=== PATIENT | male | born 1945 | race Caucasian/White ===

== ENCOUNTER 2020-06-28 17:14 | Inpatient (IN) | payer MEDICARE, SELFPAY ==
[2020-06-28] VITALS (22 sets, daily range): BP systolic 87–115; BP diastolic 46–60; PULSE 92–111; RESP 15–31; TEMP 37.1–37.6; O2SAT 94–98; BMI 32.8
[2020-06-28] MEDS: SODIUM CHLORIDE 0.9% 1,000 ML 1000 ML IV ×2 (17:55→20:55)
--- NOTE | 2020-06-28 18:12 | ED_ITS ---
HPI - Nausea/Vomiting/Diarrhea General Chief complaint: Nausea/Vomiting/Diarrhea Stated complaint: possible reaction to needle biopsy Time Seen by Provider: 06/28/20 18:02 Source: patient Mode of arrival: Family Vehicle Limitations: no limitations History of Present Illness HPI Narrative: Patient is a 75-year-old male who earlier this week underwent a transrectal needle biopsy of his prostate for evaluation of a rising PSA and also prosthetic hypertrophy. He does not have the results of this biopsy back as of this point. He had the procedure done at [facility]. He stated that after the procedure he did have some difficulty urinating but that seems to have resolved. He does have some burning with urination. Has had diarrhea since the procedure. Has no rectal pain but states that he does have some discomfort when he sits. No blood in the stool. No blood in his urine. Yesterday had a episode where he became very chilled and had body aches and shaking. He took some Tylenol which helped his symptoms tremendously. He stated after take the Tylenol he felt better. Today the same episode happened again but he did report that it was not as bad today as it was yesterday. He contacted the operative providers office to told him to come to the emergency department as they were concerned about a potential infection. Related Data Home Medications Medication Instructions Recorded Confirmed atorvastatin 10 mg tablet 10 mg PO DAILY 09/16/18 06/28/20 losartan 50 mg tablet 50 mg PO BID tab 09/16/18 06/28/20 Allergies Allergy/AdvReac Type Severity Reaction Status Date / Time tamsulosin [From Flomax] Allergy Unknown Verified 06/28/20 17:37 Review of Systems Constitutional Constitutional: Reports chills and Reports fever(s) Eyes Eyes: Denies change in vision ENT Ears, Nose, Mouth, and Throat: Denies sore throat Cardiovascular Cardiovascular: Denies chest pain and Denies dyspnea Respiratory Respiratory: Denies cough and Denies dyspnea Gastrointestinal Gastrointestinal: Denies abdominal pain, Denies nausea and Denies vomiting Genitourinary Genitourinary: Denies hematuria, Denies dysuria, Denies urinary hesitancy and Denies urinary urgency Genitourinary: Denies hematuria, Denies dysuria, Denies urinary hesitancy and Denies urinary urgency Musculoskeletal Musculoskeletal: Denies arthralgias, Denies back pain and Denies myalgias Integumentary/Breasts Skin/Breast: Denies lesions and Denies rash Neurologic Neurologic: Denies behavioral changes Psychiatric Psychiatric: Denies behavioral changes Hematologic/Lymphatic Hematologic/Lymphatic: Denies easy bleeding and Denies easy bruising Allergic/Immunologic Allergic/Immunologic: Denies urticaria Patient History Medical History Asthma BPH (benign prostatic hyperplasia) Chronic seasonal allergic rhinitis GERD (gastroesophageal reflux disease) Hypertension Lung nodule < 6cm on CT Obstructive sleep apnea of adult Family History Other CAD (coronary artery disease) Cancer Social History household members: significant other Smoking Status: Never smoker alcohol intake: former Smoking Status: Never smoker alcohol intake frequency: 0-2 drinks per day Substance Use Type: does not use Exam Initial Vital Signs Initial Vital Signs: Vital Signs Pulse Rate 111 H 06/28/20 17:24 Pulse Oximetry 95 06/28/20 17:24 Const General: cooperative and comfortable Limitations: mental status not altered HENMT Head: normal to inspection and normocephalic Resp Effort & Inspection: not labored and tachypneic Auscultation: clear to auscultation bilaterally Cardio Rate: tachycardic Rhythm: regular rhythm GI Inspection: non-distended Palpation: soft, No firm and No tender Skin Lesions: no lesions Rashes: no rashes Neuro General: patient alert and patient awake Cognition: normal cognition Speech: speech normal Extrem General: capillary refill normal Psych Appearance: grossly normal and well kempt Scores GCS Gavin coma scale eye opening: Spontaneous Gavin coma scale verbal response: Orientated Gavin coma scale motor response: Obey commands Gavin coma scale total score: 15 Course Orders Ordered: ED Orders 06/28/20 17:53 Complete Blood Count AUTO DIFF Stat Comprehensive Metabolic Panel Stat Lactate (Lactic Acid) Stat Lipase Stat Procalcitonin Stat 06/28/20 18:15 CT abdomen pelvis w con Stat 06/28/20 18:36 Blood Culture Stat 06/28/20 19:27 Urinalysis and Microscopic Stat Urine Culture Stat 06/28/20 20:38 COVID19 Stat Acetaminophen (Acetaminophen 325 Mg Tablet) 650 mg PO Q4HR PRN PRN Reason: Fever/Mild Pain (1-3) Al Hydrox/Mg Hydrox/Simethicone (Mag Hydrox/Alum/Simeth 30 Ml Udc) 30 ml PO Q6HR PRN PRN Reason: Dyspepsia Calcium Carbonate (Calcium Carbonate 500 Mg Tab) 1,000 mg PO Q4HR PRN PRN Reason: Dyspepsia Enoxaparin Sodium (Enoxaparin 40 Mg/0.4 Ml Syringe) 40 mg SUBCUT DAILY HUBER Sodium Chloride (Normal Saline 0.9%) 1,000 mls @ 150 mls/hr IV CONT HUBER Piperacillin/Tazobactam/Dextrose (Zosyn) 3.375 gm in 50 mls @ 100 mls/hr IV Q8H HUBER Vancomycin HCl (Vancomycin) 1,000 mg in 200 mls @ 200 mls/hr IV Q12H HUBER Naloxone HCl (Naloxone 0.4 Mg/Ml Vial) 0.2 mg IV Q2MIN PRN PRN Reason: Opiate Reversal Ondansetron HCl (Ondansetron 4 Mg/2 Ml Inj) 4 mg IV Q8HR PRN PRN Reason: Nausea And Vomiting Oxycodone HCl (Oxycodone Ir 5 Mg Tablet) 5 mg PO Q6HR PRN PRN Reason: Pain, Moderate (4-6) Vancomycin HCl (Vancomycin Per Pharmacy) 1 request MISC NOW ONE Stop: 06/28/20 22:15 Discontinued Medications Sodium Chloride (Normal Saline 0.9%) 1,000 mls @ 1,000 mls/hr IV BOLUS ONE Stop: 06/28/20 19:12 Last Infusion: 06/28/20 19:25 Dose: 0 mls/hr Documented by: Admin: 06/28/20 17:55 Dose: 1,000 mls/hr Documented by: RANDY Ceftriaxone Sodium/Dextrose (Rocephin) 1 gm in 50 mls @ 100 mls/hr IV NOW ONE Stop: 06/28/20 19:29 Last Infusion: 06/28/20 20:53 Dose: 0 mls/hr Documented by: Admin: 06/28/20 19:35 Dose: 100 mls/hr Documented by: LONDON Sodium Chloride (Normal Saline 0.9%) 1,000 mls @ 1,000 mls/hr IV BOLUS ONE Stop: 06/28/20 21:38 Last Infusion: 06/28/20 21:36 Dose: 1,000 mls/hr Documented by: Admin: 06/28/20 20:55 Dose: 1,000 mls/hr Documented by: LONDON Piperacillin/Tazobactam/Dextrose (Zosyn) 3.375 gm in 50 mls @ 100 mls/hr IV NOW ONE Stop: 06/28/20 21:09 Last Infusion: 06/28/20 21:25 Dose: 0 mls/hr Documented by: Admin: 06/28/20 20:54 Dose: 100 mls/hr Documented by: LONDON Vancomycin HCl (Vancomycin) 1,000 mg in 200 mls @ 200 mls/hr IV NOW ONE Stop: 06/28/20 21:38 Last Admin: 06/28/20 21:53 Dose: 200 mls/hr Documented by: SUGEY Vital Signs Vital signs: Vital Signs - 8 hr 06/28/20 17:24 06/28/20 17:25 06/28/20 17:29 Temperature 99.6 F Pulse Rate 111 H 108 H 110 H Respiratory Rate 20 Blood Pressure 97/49 L Pulse Oximetry 95 96 98 06/28/20 17:30 06/28/20 17:35 06/28/20 17:40 Temperature Pulse Rate 106 H 106 H 101 H Respiratory Rate 20 20 15 Blood Pressure 97/49 L Pulse Oximetry 96 95 94 06/28/20 17:45 06/28/20 17:47 06/28/20 17:50 Temperature Pulse Rate 103 H 104 H 105 H Respiratory Rate 19 26 H 18 Blood Pressure 87/52 L Pulse Oximetry 96 95 96 06/28/20 17:55 06/28/20 17:58 06/28/20 18:00 Temperature Pulse Rate 103 H 105 H 104 H Respiratory Rate 28 H 22 20 Blood Pressure 97/56 L 95/50 L Pulse Oximetry 96 96 96 06/28/20 18:05 06/28/20 18:30 06/28/20 19:00 Temperature Pulse Rate 103 H 100 H 105 H Respiratory Rate 23 25 H 28 H Blood Pressure 102/52 L 90/51 L Pulse Oximetry 96 96 96 06/28/20 19:26 06/28/20 19:30 06/28/20 20:00 Temperature Pulse Rate 101 H 105 H 104 H Respiratory Rate 29 H 20 27 H Blood Pressure 92/53 L 88/46 L 90/51 L Pulse Oximetry 97 95 96 06/28/20 20:30 Temperature Pulse Rate 106 H Respiratory Rate 23 Blood Pressure 104/59 L Pulse Oximetry 96 MDM - Nausea/Vomiting/Diarrhea Lab Data Attestation: I reviewed the patient's lab results. Result diagrams: 06/28/20 17:53 06/28/20 17:53 Labs: Lab Results 06/28/20 06/28/20 06/28/20 Range/Units 17:53 17:53 17:53 WBC 17.3 H (4.5-11.0) X10^3/uL RBC 3.58 L (4.5-5.9) X10^6/uL Hgb 12.0 L (13.5-17.5) g/dL Hct 34.7 L (41-53) % MCV 96.9 (80-100) fL MCH 33.6 (26-34) PG MCHC 34.7 (30-36) % RDW 12.5 (11.6-14.8) % Plt Count 143 L (150-400) X10^3/uL Neut % (Auto) 95.3 H (50-75) % Lymph % (Auto) 1.4 L (25-40) % Sac % (Auto) 2.9 L (3-14) % Eos % (Auto) 0.1 L (2-4) % Baso % (Auto) 0.3 (0-2) % Neut # (Auto) 23729 H (4748-3241) /uL Lymph # (Auto) 200 L (8119-4628) /uL Sac # (Auto) 500 (0-900) /uL Eos # (Auto) 0 (0-450) /uL Baso # (Auto) 0 (0-100) /uL Sodium 132 L (137-145) mmol/L Potassium 3.8 (3.4-5.1) mmol/L Chloride 101 (98-107) mmol/L Carbon Dioxide 23 (22-32) mmol/L BUN 31 H (9-20) mg/dL Creatinine 1.31 H (0.66-1.25) mg/dL Estimated GFR 53.3 L (>60) mL/min BUN/Creatinine Ratio 23.7 H (6-22) Glucose 128 H (80-110) mg/dL Lactate (0.7-2.1) mmol/L Calcium 8.8 (8.4-10.2) mg/dL Total Bilirubin 1.1 (0.2-1.3) mg/dL AST 47 (17-59) IU/L ALT 38 (<50) IU/L Alkaline Phosphatase 93 (38-126) U/L Total Protein 6.6 (6.3-8.2) g/dL Albumin 3.7 (3.5-5.0) g/dL Globulin 2.9 (1.7-4.1) g/dL Albumin/Globulin Ratio 1.3 (1.0-2.8) Lipase 61 (23-300) U/L Procalcitonin 22.43 H (<0.5) ng/mL Urine Color Urine Appearance Urine pH (4.5-8.0) Ur Specific [place] (1.000-1.035) Urine Protein (Negative) Urine Glucose (UA) (Negative) g/dL Urine Ketones (NEGATIVE) Urine Occult Blood (Negative) Urine Nitrate (Negative) Urine Bilirubin (NEGATIVE) Urine Urobilinogen (0.2) E.U./dL Ur Leukocyte Esterase (NEGATIVE) Urine RBC (0-5/HPF) Urine WBC (0-5/HPF) Ur Squamous Epith Cells (0-5/HPF) Urine Bacteria (None) Hyaline Casts (None) Ur Culture Indicated? Micro UA Comment COVID-19 PCR (Negative) 06/28/20 06/28/20 06/28/20 Range/Units 17:53 19:27 20:36 WBC (4.5-11.0) X10^3/uL RBC (4.5-5.9) X10^6/uL Hgb (13.5-17.5) g/dL Hct (41-53) % MCV (80-100) fL MCH (26-34) PG MCHC (30-36) % RDW (11.6-14.8) % Plt Count (150-400) X10^3/uL Neut % (Auto) (50-75) % Lymph % (Auto) (25-40) % Sac % (Auto) (3-14) % Eos % (Auto) (2-4) % Baso % (Auto) (0-2) % Neut # (Auto) (9282-8285) /uL Lymph # (Auto) (6745-8502) /uL Sac # (Auto) (0-900) /uL Eos # (Auto) (0-450) /uL Baso # (Auto) (0-100) /uL Sodium (137-145) mmol/L Potassium (3.4-5.1) mmol/L Chloride (98-107) mmol/L Carbon Dioxide (22-32) mmol/L BUN (9-20) mg/dL Creatinine (0.66-1.25) mg/dL Estimated GFR (>60) mL/min BUN/Creatinine Ratio (6-22) Glucose (80-110) mg/dL Lactate 2.5 H 1.3 (0.7-2.1) mmol/L Calcium (8.4-10.2) mg/dL Total Bilirubin (0.2-1.3) mg/dL AST (17-59) IU/L ALT (<50) IU/L Alkaline Phosphatase (38-126) U/L Total Protein (6.3-8.2) g/dL Albumin (3.5-5.0) g/dL Globulin (1.7-4.1) g/dL Albumin/Globulin Ratio (1.0-2.8) Lipase (23-300) U/L Procalcitonin (<0.5) ng/mL Urine Color Yellow Urine Appearance Clear Urine pH 5.5 (4.5-8.0) Ur Specific [place] <=1.005 (1.000-1.035) Urine Protein Trace H (Negative) Urine Glucose (UA) Negative (Negative) g/dL Urine Ketones Negative (NEGATIVE) Urine Occult Blood 3+ H (Negative) Urine Nitrate Negative (Negative) Urine Bilirubin Negative (NEGATIVE) Urine Urobilinogen 0.2 (0.2) E.U./dL Ur Leukocyte Esterase 1+ H (NEGATIVE) Urine RBC 10-30/hpf H (0-5/HPF) Urine WBC 10-30/hpf H (0-5/HPF) Ur Squamous Epith Cells 1-5 /hpf (0-5/HPF) Urine Bacteria Few (2-10) H (None) Hyaline Casts 1-5/lpf (None) Ur Culture Indicated? Cult not indicated Micro UA Comment Cx already ordered COVID-19 PCR (Negative) 06/28/20 Range/Units 20:38 WBC (4.5-11.0) X10^3/uL RBC (4.5-5.9) X10^6/uL Hgb (13.5-17.5) g/dL Hct (41-53) % MCV (80-100) fL MCH (26-34) PG MCHC (30-36) % RDW (11.6-14.8) % Plt Count (150-400) X10^3/uL Neut % (Auto) (50-75) % Lymph % (Auto) (25-40) % Sac % (Auto) (3-14) % Eos % (Auto) (2-4) % Baso % (Auto) (0-2) % Neut # (Auto) (7810-8212) /uL Lymph # (Auto) (1328-7492) /uL Sac # (Auto) (0-900) /uL Eos # (Auto) (0-450) /uL Baso # (Auto) (0-100) /uL Sodium (137-145) mmol/L Potassium (3.4-5.1) mmol/L Chloride (98-107) mmol/L Carbon Dioxide (22-32) mmol/L BUN (9-20) mg/dL Creatinine (0.66-1.25) mg/dL Estimated GFR (>60) mL/min BUN/Creatinine Ratio (6-22) Glucose (80-110) mg/dL Lactate (0.7-2.1) mmol/L Calcium (8.4-10.2) mg/dL Total Bilirubin (0.2-1.3) mg/dL AST (17-59) IU/L ALT (<50) IU/L Alkaline Phosphatase (38-126) U/L Total Protein (6.3-8.2) g/dL Albumin (3.5-5.0) g/dL Globulin (1.7-4.1) g/dL Albumin/Globulin Ratio (1.0-2.8) Lipase (23-300) U/L Procalcitonin (<0.5) ng/mL Urine Color Urine Appearance Urine pH (4.5-8.0) Ur Specific [place] (1.000-1.035) Urine Protein (Negative) Urine Glucose (UA) (Negative) g/dL Urine Ketones (NEGATIVE) Urine Occult Blood (Negative) Urine Nitrate (Negative) Urine Bilirubin (NEGATIVE) Urine Urobilinogen (0.2) E.U./dL Ur Leukocyte Esterase (NEGATIVE) Urine RBC (0-5/HPF) Urine WBC (0-5/HPF) Ur Squamous Epith Cells (0-5/HPF) Urine Bacteria (None) Hyaline Casts (None) Ur Culture Indicated? Micro UA Comment COVID-19 PCR Negative (Negative) Urine Dip Bedside Urine Glucose Negative Bedside Urine Bilirubin - Negative Bedside Urine Ketone - Negative Urine Specific [place] 1.010 Bedside Urine Occult Blood ++ Bedside Urine pH 6.0 Bedside Urine Protein +/- 15 Bedside Urine Urobilinogen - Negative Bedside Urine Nitrite - Negative Bedside Urine Leukocytes +/- [address] scan - abdomen/pelvis: Radiologist's Impression: [address] [id number] Scan ReportSigned Patient: Jeanna SnyderMR#: [id number]: 5Acct:[id number]/Sex: 75 / MDate of Service: 06/28/20Loc: EDAccession Number: [id number] Procedure: CT abdomen pelvis w con Ordering Provider: Pablo Vasquez D.O. PROCEDURE: CT ABDOMEN PELVIS W CON INDICATIONS: prostate bx earlier this week with chills eval for abscess TECHNIQUE: After the administration of intravenous contrast, 5 mm thick sections acquired f rom the diaphragm to the symphysis. 5 mm coronal and sagittal reformats were acquired. For radiation dose reduction, the following was used: automated exposure control, adjustment of mA and/or kV according to patient size. COMPARISON: None. FINDINGS: Image quality: Excellent. ABDOMEN: Lung bases: Mild left lung base atelectasis. Heart size is normal. Coronary artery calcification. Solid organs: Liver is normal in size and enhancement. Lobulated posterior right hepatic lobe cyst. Gallbladder is partially decompressed . Biliary system is non dilated. Pancreas enhances normally. Spleen is normal in size and enhancement. No adrenal nodules. Kidneys demonstrate normal size and enhancement, without hydronephrosis. Peritoneum and bowel: Bowel loops demonstrate normal wall thickness and caliber. Diverticulosis of the sigmoid colon. No pericolonic inflammation. Normal appendix in the right lower quadrant. No free fluid or air. Nodes and vessels: No retroperitoneal or mesenteric adenopathy by size criteria. Aorta and inferior vena cava are normal in size. Moderate abdominal aortic atherosclerotic calcification. Miscellaneous: No ventral hernias. PELVIS: Genitourinary: The urinary bladder is partially filled and the wall is diffusely circumferentially thickened. There are moderate perivesicular inflammatory changes. The prostate gland is moderately enlarged with coarse central calcifications. There is mild fat stranding surrounding the prostate gland and in the perirectal fat as well as thickening of the presacral fascia. A discrete fluid collection is not identified. Miscellaneous: Small, right greater than left bilateral fat containing inguinal hernias. No significant pelvic adenopathy. Bones: No suspicious bony lesions. Multilevel lumbar spondylosis. No vertebral body compression fractures. IMPRESSION: 1. Generalized inflammation around the urinary bladder and prostate gland suggesting cystitis and/or prostatitis. 2. No drainable abscess. 3. Sigmoid diverticulosis. Dictated by: Janki Novoa M.D. on 06/28/2020 at 19:42 Approved by: Janki Novoa M.D. on 06/28/2020 at 19:49 [facility] Narrative Medical decision making narrative: Patient does have a leukocytosis, elevated procalcitonin, slightly elevated lactate was tachycardic. Patient was fluid resuscitated. Upon return of his initial labs started on antibiotics. Blood cultures were obtained. Urinalysis concerning for infection. CT scan returning for prostatitis/cystitis. He states that he feels much better after fluids. Not altered. I did discuss the case with on-call Urology at [facility] who recommended giving the patient Zosyn and vancomycin instead of Rocephin. He stated that they give all of their patient's Rocephin prior to the procedure. H e also recommended giving the patient Augmentin as an oral antibiotic after discharge. He states that he was on-call this weekend if things were to change in be happy to take the patient in transfer if they needed to but he did not feel that any emergent urologic procedures were needed. Had a discussion with the patient regarding his symptoms. Informed him that given his vital signs and labs that admission to the hospital for IV antibiotics would be warranted. Patient and his was at bedside expressed understanding agreement with this plan. Discussed the case with BHUMIKA Bill the [facility] provider who will accept the patient for further evaluation and treatment. Discharge Plan Departure Patient Disposition: Admitted As Inpatient Clinical Impression: Urinary tract infection Qualifiers: Urinary tract infection type: acute cystitis Hematuria presence: with hematuria Qualified Code(s): N30.01 - Acute cystitis with hematuria Admit Date/Time: 06/28/20 20:39 Admit Provider: Vimal Bill
--- NOTE | 2020-06-28 18:15 | DI.CT.S_ITS ---
PROCEDURE: CT ABDOMEN PELVIS W CON INDICATIONS: prostate bx earlier this week with chills eval for abscess TECHNIQUE: After the administration of intravenous contrast, 5 mm thick sections acquired from the diaphragm to the symphysis. 5 mm coronal and sagittal reformats were acquired. For radiation dose reduction, the following was used: automated exposure control, adjustment of mA and/or kV according to patient size. COMPARISON: None. FINDINGS: Image quality: Excellent. ABDOMEN: Lung bases: Mild left lung base atelectasis. Heart size is normal. Coronary artery calcification. Solid organs: Liver is normal in size and enhancement. Lobulated posterior right hepatic lobe cyst. Gallbladder is partially decompressed . Biliary system is non dilated. Pancreas enhances normally. Spleen is normal in size and enhancement. No adrenal nodules. Kidneys demonstrate normal size and enhancement, without hydronephrosis. Peritoneum and bowel: Bowel loops demonstrate normal wall thickness and caliber. Diverticulosis of the sigmoid colon. No pericolonic inflammation. Normal appendix in the right lower quadrant. No free fluid or air. Nodes and vessels: No retroperitoneal or mesenteric adenopathy by size criteria. Aorta and inferior vena cava are normal in size. Moderate abdominal aortic atherosclerotic calcification. Miscellaneous: No ventral hernias. PELVIS: Genitourinary: The urinary bladder is partially filled and the wall is diffusely circumferentially thickened. There are moderate perivesicular inflammatory changes. The prostate gland is moderately enlarged with coarse central calcifications. There is mild fat stranding surrounding the prostate gland and in the perirectal fat as well as thickening of the presacral fascia. A discrete fluid collection is not identified. Miscellaneous: Small, right greater than left bilateral fat containing inguinal hernias. No significant pelvic adenopathy. Bones: No suspicious bony lesions. Multilevel lumbar spondylosis. No vertebral body compression fractures. IMPRESSION: 1. Generalized inflammation around the urinary bladder and prostate gland suggesting cystitis and/or prostatitis. 2. No drainable abscess. 3. Sigmoid diverticulosis. Dictated by: Janki Novoa M.D. on 06/28/2020 at 19:42 Approved by: Janki Novoa M.D. on 06/28/2020 at 19:49
[2020-06-28 18:38] LABS: Lactate (Lactic Acid) 2.5 mmol/L (0.7-2.1)
[2020-06-28 18:39] LABS: Alanine Aminotransferase 38 IU/L (<50); Albumin 3.7 g/dL (3.5-5.0); Albumin Globulin Ratio 1.3 (1.0-2.8); Alkaline Phosphatase 93 U/L (38-126); Aspartate Aminotransferase 47 IU/L (17-59); BUN Creatinine Ratio 23.7 (6-22); Bilirubin Total 1.1 mg/dL (0.2-1.3); Blood Urea Nitrogen 31 mg/dL (9-20); Calcium 8.8 mg/dL (8.4-10.2); Carbon Dioxide 23 mmol/L (22-32); Chloride 101 mmol/L (98-107); Estimated Glomerular Filt Rate 53.3 mL/min (>60); Globulin 2.9 g/dL (1.7-4.1); Glucose 128 mg/dL (80-110); HEMOLYSIS < 15 (0-50); Lipase 61 U/L (23-300); Potassium 3.8 mmol/L (3.4-5.1); Sodium 132 mmol/L (137-145); Total Protein 6.6 g/dL (6.3-8.2)
[2020-06-28 18:40] LABS: Add Manual Diff / Slide Review NO; Basophils Absolute Auto 0 /uL (0-100); Basophils Percent Auto 0.3 % (0-2); Eosinophils Absolute Auto 0 /uL (0-450); Eosinophils Percent Auto 0.1 % (2-4); Hematocrit 34.7 % (41-53); Lymphocytes Absolute Auto 200 /uL (1100-4500); Lymphocytes Percent Auto 1.4 % (25-40); Mean Corpuscular HGB Conc 34.7 % (30-36); Mean Corpuscular Hemoglobin 33.6 PG (26-34); Mean Corpuscular Volume 96.9 fL (80-100); Monocytes Absolute Auto 500 /uL (0-900); Monocytes Percent Auto 2.9 % (3-14); Neutrophils Absolute Auto 16500 /uL (1500-7000); Neutrophils Percent Auto 95.3 % (50-75); Platelet Count 143 X10^3/uL (150-400); Red Blood Cell Count 3.58 X10^6/uL (4.5-5.9); Red Cell Distribution Width 12.5 % (11.6-14.8); White Blood Cell Count 17.3 X10^3/uL (4.5-11.0)
[2020-06-28 18:59] LABS: Procalcitonin 22.43 ng/mL (<0.5)
[2020-06-28 19:33] LABS: Appearance Urine UA CLEAR; Bilirubin Urine UA NEGATIVE (NEGATIVE); Color Urine UA YELLOW; Glucose Urine UA NEGATIVE (Negative); Ketones Urine UA NEGATIVE (NEGATIVE); Leukocyte Esterase Urine UA 1+ (NEGATIVE); Nitrite Urine UA NEGATIVE (Negative); Occult Blood Urine UA 3+ (Negative); Protein Urine UA TRACE (Negative); Specific Gravity Urine UA <=1.005 (1.000-1.035); Urobilinogen Urine UA 0.2 E.U./dL (0.2); pH Urine UA 5.5 (4.5-8.0)
[2020-06-28] MEDS: CEFTRIAXONE 1 GM/50 ML FROZ.PIGGY IV (19:35)
[2020-06-28 19:52] LABS: Bacteria Urine Few (2-10); Culture Indicated Urine Cult Not Indicated; Hyaline Casts Urine 1-5/LPF; RBC Urine 10-30/HPF (0-5/HPF); Squamous Epithelial Cell Urine 1-5 /HPF (0-5/HPF); WBC Urine 10-30/HPF (0-5/HPF)
[2020-06-28 19:53] LABS: Urine Comments CX ALREADY ORDERED
[2020-06-28 20:27] LABS: Reflexed Lactate in 2 Hours Y
[2020-06-28 20:52] LABS: Lactate 2HR (Lactic Acid Rflx) 1.3 mmol/L (0.7-2.1)
[2020-06-28] MEDS: PIPERACILLIN-TAZO 3.375 GM/50 ML FROZ.PIGGY IV (20:54)
[2020-06-28 20:57] LABS: COVID19 -Nasal RAPID Negative (Negative)
[2020-06-28 21:45] LABS: Magnesium 1.5 mg/dL (1.6-2.3)
[2020-06-28] MEDS: VANCOMYCIN 1,000 MG/200 ML PIGGYBACK 200 MG IV (21:53)
[2020-06-28] MEDS: SODIUM CHLORIDE 0.9% 1,000 ML 150 ML IV (22:21)
--- NOTE | 2020-06-28 22:47 | PM.HP.1 ---
History of Present Illness History of Present Illness Date Patient Seen: 06/28/20 Time Patient Seen: 22:20 Chief complaint: possible reaction to needle biopsy Narrative: Mr. Jeanna Clemons is a 75 year old male with a past medical history significant for hypertension, lung nodule, obstructive sleep with CPAP, GERD in chronic bilateral shoulder pain who presents to the ER with nausea vomiting and diarrhea. The patient underwent a transrectal prostate biopsy 3 days ago at [facility]. Following the procedure the patient describes having mild difficulty with urinating peroneal tenderness and developed chills and rigors yesterday improved with associated with nausea and vomiting. He also had moderate diarrhea that has since improved today. He had recurrent rigors not as severe today as well as lightheadedness and dizziness on standing prompting presentation to the ER for evaluation. The patient provides further information that he underwent but he describes as TURP 06/12/2020 and prior to that it had prostate laser surgery without improvement. Patient denies fevers only endorses chills and rigors. He has chronic nasal congestion but denies sinus pain or sore throat. He has had no chest pain or palpitations and denies shortness of breath cough or wheezing. Reports no abdominal pain and denies cramping with diarrhea which is improved from watery to soft. He continues to have frequent difficult urination and has a history of nocturia 2-5 times per night. He has bilateral shoulder pain related to rotator cuff disorder which he has been using CBD oil with good effect. Upon arrival the ER the patient's temperature 99.6?, heart rate 110, blood pressure 97/49, respiratory rate of 20 saturating 98% on room air. A CT of the abdomen pelvis is obtained which finds generalized inflammation around the urinary bladder and prostate with fat stranding around the prostate suspicious for cystitis or prostatitis, no abscess or free fluid, noted sigmoid diverticulosis. On laboratory analysis the patient has white count of 17.3 with 95.3 neutrophils, hemoglobin of 12.0, hematocrit of 34.7 and platelets of 143. His sodium 32, potassium of 3.8, BUN of 31 and creatinine 1.31. His nonfasting glucose is 128. His EGFR is 53.3. Total bilirubin is 1.1 with AST of 47, ALT of 38 and alkaline phosphatase of 93. Lactic acid is 2.5 improved to 1.3 on re-evaluation. Procalcitonin is 22.43. Urinalysis finds a specific gravity of 1.005, positive for blood leukocyte esterase WBCs and bacteria. In the ER the patient received Rocephin 1 g IV. Urology was contacted at [facility] where the patient had the procedure done in consultation with Dr. ferrera the patient was started on Zosyn 3.375 g and vancomycin 1 g IV. The patient is admitted to the hospitalist service for cystitis and prostatitis.. Patient History Medical History Asthma BPH (benign prostatic hyperplasia) Chronic seasonal allergic rhinitis GERD (gastroesophageal reflux disease) Hypertension Lung nodule < 6cm on CT Obstructive sleep apnea of adult Surgical History (Updated 06/29/20 @ 00:14 by DAYO Joiner) History of prostate biopsy History of prostate surgery History of repair of rotator cuff History of transurethral resection of prostate Family & Social History Family History (Updated 06/29/20 @ 00:16 by DAYO Joiner) Mother Cancer Brother Cancer Father CAD (coronary artery disease) Social History: household members significant other Prior Living Arrangements House Safety & Behavioral: Feels Safe in Current Yes Environment Been Physically Hurt or No Threatened By a Person Suicidal Ideation Description None Suicide Plan Description No Plan Tobacco & Substance use: Smoking Status Never smoker alcohol intake former alcohol intake frequency 0-2 drinks per day Substance Use Type does not use Meds Home Medications and Allergies Home Medications Medication Instructions Recorded Confirmed Type atorvastatin 10 mg tablet 10 mg PO DAILY 09/16/18 06/28/20 History losartan 50 mg tablet 50 mg PO BID tab 09/16/18 06/28/20 History Allergies Allergy/AdvReac Type Severity Reaction Status Date / Time tamsulosin [From Flomax] Allergy Unknown Verified 06/28/20 17:37 Review of Systems Review of Systems ROS: Yes All systems reviewed with the patient and are negative except as otherwise documented Exam Vital Signs (past 8 hours): - 06/28/20 17:24 06/28/20 17:25 06/28/20 17:29 Temperature 99.6 F Pulse Rate 111 H 108 H 110 H Respiratory Rate 20 Blood Pressure 97/49 L Pulse Oximetry 95 96 98 06/28/20 17:30 06/28/20 17:35 06/28/20 17:40 Temperature Pulse Rate 106 H 106 H 101 H Respiratory Rate 20 20 15 Blood Pressure 97/49 L Pulse Oximetry 96 95 94 06/28/20 17:45 06/28/20 17:47 06/28/20 17:50 Temperature Pulse Rate 103 H 104 H 105 H Respiratory Rate 19 26 H 18 Blood Pressure 87/52 L Pulse Oximetry 96 95 96 06/28/20 17:55 06/28/20 17:58 06/28/20 18:00 Temperature Pulse Rate 103 H 105 H 104 H Respiratory Rate 28 H 22 20 Blood Pressure 97/56 L 95/50 L Pulse Oximetry 96 96 96 06/28/20 18:05 06/28/20 18:30 06/28/20 19:00 Temperature Pulse Rate 103 H 100 H 105 H Respiratory Rate 23 25 H 28 H Blood Pressure 102/52 L 90/51 L Pulse Oximetry 96 96 96 06/28/20 19:26 06/28/20 19:30 06/28/20 20:00 Temperature Pulse Rate 101 H 105 H 104 H Respiratory Rate 29 H 20 27 H Blood Pressure 92/53 L 88/46 L 90/51 L Pulse Oximetry 97 95 96 06/28/20 20:30 06/28/20 21:00 06/28/20 21:35 Temperature 98.9 F Pulse Rate 106 H 101 H 100 H Respiratory Rate 23 31 H 19 Blood Pressure 104/59 L 102/60 115/48 L Pulse Oximetry 96 97 98 Oxygen Delivery Method Room Air Oxygen Flow Rate 0 Narrative Exam Narrative: GENERAL APPEARANCE: well developed, obese male with BMI of 32.8 lying supine in bed in no acute distress. HEENT: Normocephalic, PERRLA, conjunctiva clear, EOMs intact without nystagmus, no sinus tenderness to percussion, nasal congestion with clear rhinorrhea, mucous membranes are dry and pink. NECK/THYROID: neck supple, no JVD, no carotid bruit, no thyromegaly, trachea midline. LYMPH NODES: no cervical or supraclavicular lymphadenopathy. SKIN: [place], warm and dry, no visible lesions, rashes, ulcerations or petechiae. HEART: regular rate and rhythm, S1-S2, no murmur, no rubs or gallops, brisk capillary refill, no edema LUNGS: Diminished but clear to auscultation bilaterally, no coarseness crackles or wheezing, no cough present CHEST: Symmetrical movement, no accessory muscle use, good tidal volume. ABDOMEN: Soft, protuberant, dull to percussion,, no epigastric or abdominal tenderness, no organomegaly, no flank or suprapubic tenderness, no perineal pain, active bowel tones. EXTREMITIES: moves all extremities, strength is 5/5 and symmetrical, no deformities or joint effusions, ambulatory with stable gait. NEUROLOGIC: AAO x4, no focal neurologic deficits, cranial nerves II-XII grossly intact, sensation intact to light touch, hearing grossly normal to speech. PSYCH: Alert, cooperative and appropriate. Objective Labs Result Diagrams: 06/28/20 17:53 06/28/20 17:53 Labs: Laboratory Results - last 24 hr 06/28/20 06/28/20 06/28/20 17:53 17:53 17:53 WBC 17.3 H RBC 3.58 L Hgb 12.0 L Hct 34.7 L MCV 96.9 MCH 33.6 MCHC 34.7 RDW 12.5 Plt Count 143 L Neut % (Auto) 95.3 H Lymph % (Auto) 1.4 L Mcpherson % (Auto) 2.9 L Eos % (Auto) 0.1 L Baso % (Auto) 0.3 Neut # (Auto) 82188 H Lymph # (Auto) 200 L Mcpherson # (Auto) 500 Eos # (Auto) 0 Baso # (Auto) 0 Sodium 132 L Potassium 3.8 Chloride 101 Carbon Dioxide 23 BUN 31 H Creatinine 1.31 H Estimated GFR 53.3 L BUN/Creatinine Ratio 23.7 H Glucose 128 H Lactate Calcium 8.8 Magnesium Total Bilirubin 1.1 AST 47 ALT 38 Alkaline Phosphatase 93 Total Protein 6.6 Albumin 3.7 Globulin 2.9 Albumin/Globulin Ratio 1.3 Lipase 61 Procalcitonin 22.43 H Urine Color Urine Appearance Urine pH Ur Specific [place] Urine Protein Urine Glucose (UA) Urine Ketones Urine Occult Blood Urine Nitrate Urine Bilirubin Urine Urobilinogen Ur Leukocyte Esterase Urine RBC Urine WBC Ur Squamous Epith Cells Urine Bacteria Hyaline Casts Ur Culture Indicated? Micro UA Comment COVID-19 PCR 06/28/20 06/28/20 06/28/20 17:53 19:27 20:36 WBC RBC Hgb Hct MCV MCH MCHC RDW Plt Count Neut % (Auto) Lymph % (Auto) Mcpherson % (Auto) Eos % (Auto) Baso % (Auto) Neut # (Auto) Lymph # (Auto) Mcpherson # (Auto) Eos # (Auto) Baso # (Auto) Sodium Potassium Chloride Carbon Dioxide BUN Creatinine Estimated GFR BUN/Creatinine Ratio Glucose Lactate 2.5 H 1.3 Calcium Magnesium Total Bilirubin AST ALT Alkaline Phosphatase Total Protein Albumin Globulin Albumin/Globulin Ratio Lipase Procalcitonin Urine Color Yellow Urine Appearance Clear Urine pH 5.5 Ur Specific [place] <=1.005 Urine Protein Trace H Urine Glucose (UA) Negative Urine Ketones Negative Urine Occult Blood 3+ H Urine Nitrate Negative Urine Bilirubin Negative Urine Urobilinogen 0.2 Ur Leukocyte Esterase 1+ H Urine RBC 10-30/hpf H Urine WBC 10-30/hpf H Ur Squamous Epith Cells 1-5 /hpf Urine Bacteria Few (2-10) H Hyaline Casts 1-5/lpf Ur Culture Indicated? Cult not indicated Micro UA Comment Cx already ordered COVID-19 PCR 06/28/20 06/28/20 20:38 21:15 WBC RBC Hgb Hct MCV MCH MCHC RDW Plt Count Neut % (Auto) Lymph % (Auto) Mcpherson % (Auto) Eos % (Auto) Baso % (Auto) Neut # (Auto) Lymph # (Auto) Mcpherson # (Auto) Eos # (Auto) Baso # (Auto) Sodium Potassium Chloride Carbon Dioxide BUN Creatinine Estimated GFR BUN/Creatinine Ratio Glucose Lactate Calcium Magnesium 1.5 L Total Bilirubin AST ALT Alkaline Phosphatase Total Protein Albumin Globulin Albumin/Globulin Ratio Lipase Procalcitonin Urine Color Urine Appearance Urine pH Ur Specific [place] Urine Protein Urine Glucose (UA) Urine Ketones Urine Occult Blood Urine Nitrate Urine Bilirubin Urine Urobilinogen Ur Leukocyte Esterase Urine RBC Urine WBC Ur Squamous Epith Cells Urine Bacteria Hyaline Casts Ur Culture Indicated? Micro UA Comment COVID-19 PCR Negative Assessment & Plan Assessment & Plan narrative: This is a 75-year-old male patient who underwent a transrectal prostate biopsy a [place] patient 3 days ago and developed postoperative chills and rigors, nausea with vomiting and diarrhea, orthostatic hypotension and hypertension. 1. Severe sepsis with organ dysfunction, hypotension, acute, present on arrival, active. -patient underwent transrectal prostate biopsy 3 days ago during which time he received Rocephin prophylaxis. -the patient developed rigors and chills, cardiovascular dysfunction with hypotension, tachycardia and orthostatic hypotension, with white count elevated at 17.3, procalcitonin 22.43 and lactic acid 2.5 improving to 1.3 post fluid resuscitation. -sofa score is 3 -the patient received sepsis bolus with normal saline with improvement of blood pressure and resolution of tachycardia and orthostasis. Will continue normal saline at 100 cc/hour. -will treat the underlying cause of prostatitis and possible urosepsis as below. 2. Postprocedural prostatitis, urosepsis, acute, present on admission, active -patient reports postprocedure mild difficulty urinating. He reports ongoing frequency with nocturia but denies dysuria or perineal pain. -the patient received 1 g of Rocephin in the ER after which [facility] was contacted and consulted with Dr. Ferrera urology recommended Zosyn and vancomycin and transition to Augmentin on discharge. -patient with elevated white count at 17.3, procalcitonin 22.43 and urine positive for blood, leukocyte esterase, wbc's and bacteria. -ordered Zosyn 3.75 g IV every 8 hours, 1st dose administered in the ER. -ordered vancomycin pharmacy to dose, 1st dose of vancomycin 1 g rap artist in the ER. -will follow blood count and procalcitonin. -will follow-up with [facility] U[facility] as needed. 3. Essential hypertension, chronic, stable -patient had blood pressure of 88/46 while in the ER which improved with sepsis bolus infusion. -patient takes losartan 50 mg twice daily which is held due to hypotension. -will continue normal saline at 100 cc/hour. 4. Obstructive sleep apnea, chronic, stable. -patient reports that he does not use his CPAP regularly due to chronic nasal congestion. -reports presently using Flonase nasal spray daily. 5. Bilateral shoulder pain, rotator cuff disorder, chronic, stable. -patient previously used NSAIDs was advised not to perioperatively. The patient was using CBD oil with good efficacy. -ordered oxycodone 5 mg every the 6 hours as needed pain. VTE prophylaxis: Enoxaparin IV fluid: Normal saline 100 cc per hour Diet: Heart healthy Code status: Full code, the patient designates Elizabeth Pacheco to be his surrogate decision maker. The patient is admitted to the hospital with postprocedural severe sepsis affecting the cardiovascular system requiring ongoing treatment and monitoring prevent complications and adverse events. The patient is admitted as an inpatient with expected length of stay to be greater than 2 midnights. COVID-19 COVID-19 status: Negative Result date/Date tested (Pos, Neg/Pending): 06/28/20 Scores GCS [place] coma scale eye opening: Spontaneous [place] coma scale verbal response: Orientated [place] coma scale motor response: Obey commands [place] coma scale total score: 15 SOFA PaO2/FIO2: >=400 mmHg Platelets: < 150 Bilirubin: < 1.2 mg/dL Hypotension: MAP < 70 mmHg Gavin Coma Scale: 15 Renal: Creatinine 1.2-1.9 mg/dL SOFA Score: 3 Quality VTE Deep Vein Thrombosis/Pulmonary Embolism Present on Admission: No
--- NOTE | 2020-06-28 23:32 | PC.NURSE ---
Pt to room 208 from E.R. awake and alert.Able to ambulate to bed and to bathroom. Denies dizziness when up. Denies nausea. States S.O. is bringing in milkshake. BL calf scd's placed after pt up to bathroom to void. Urine in toilet bowl is clear without hematuria. Hospitalist Fly in to see patient. IV antibiotic infusing as ordered to right ac site without difficulty.
[2020-06-29] VITALS (11 sets, daily range): BP systolic 122–135; BP diastolic 50–63; PULSE 86–110; RESP 16–22; TEMP 36.1–38.7; O2SAT 94–98
[2020-06-29] MEDS: MAGNESIUM SULFATE 2 GM/50 ML PIGGYBACK IV (00:22)
[2020-06-29] MEDS: ACETAMINOPHEN 325 MG TABLET 650 MG PO ×2 (00:22→15:22)
[2020-06-29] MEDS: PIPERACILLIN-TAZO 3.375 GM/50 ML FROZ.PIGGY IV ×4 (04:55→23:23)
[2020-06-29 05:24] LABS: Add Manual Diff / Slide Review NO; Basophils Absolute Auto 0 /uL (0-100); Basophils Percent Auto 0.2 % (0-2); Eosinophils Absolute Auto 100 /uL (0-450); Eosinophils Percent Auto 0.5 % (2-4); Hematocrit 35.3 % (41-53); Lymphocytes Absolute Auto 600 /uL (1100-4500); Lymphocytes Percent Auto 3.6 % (25-40); Mean Corpuscular HGB Conc 33.9 % (30-36); Mean Corpuscular Hemoglobin 33.6 PG (26-34); Mean Corpuscular Volume 99.3 fL (80-100); Monocytes Absolute Auto 800 /uL (0-900); Monocytes Percent Auto 4.6 % (3-14); Neutrophils Absolute Auto 16000 /uL (1500-7000); Neutrophils Percent Auto 91.1 % (50-75); Platelet Count 126 X10^3/uL (150-400); Red Blood Cell Count 3.55 X10^6/uL (4.5-5.9); Red Cell Distribution Width 12.7 % (11.6-14.8); White Blood Cell Count 17.6 X10^3/uL (4.5-11.0)
[2020-06-29 05:25] LABS: Magnesium 2.8 mg/dL (1.6-2.3)
[2020-06-29 05:26] LABS: BUN Creatinine Ratio 23.8 (6-22); Blood Urea Nitrogen 25 mg/dL (9-20); Calcium 8.7 mg/dL (8.4-10.2); Carbon Dioxide 29 mmol/L (22-32); Chloride 104 mmol/L (98-107); Estimated Glomerular Filt Rate > 60.0 mL/min (>60); Glucose 119 mg/dL (80-110); HEMOLYSIS < 15 (0-50); Potassium 4.5 mmol/L (3.4-5.1); Sodium 135 mmol/L (137-145)
[2020-06-29 05:40] LABS: Procalcitonin 18.28 ng/mL (<0.5)
[2020-06-29 08:55] LABS: Acinetobacter baumannii Not Detected (Not Detect); Candida albicans Not Detected (Not Detect); Candida glabrata Not Detected (Not Detect); Candida krusei Not Detected (Not Detect); Candida parapsilosis Not Detected (Not Detect); Candida tropicalis Not Detected (Not Detect); E. coli Detected (Not Detect); Enterobacter cloacae complex Not Detected (Not Detect); Enterobacteriaceae species Detected (Not Detect); Enterococcus species Not Detected (Not Detect); Haemophilus influenzae Not Detected (Not Detect); KPC (carbapenem-resist gene) Not Detected (Not Detect); Listeria monocytogenes Not Detected (Not Detect); Neisseria meningitidis Not Detected (Not Detect); Proteus species Not Detected (Not Detect); Pseudomonas aeruginosa Not Detected (Not Detect); Serratia marcescens Not Detected (Not Detect); Staphylococcus species Not Detected (Not Detect); Streptococcus agalactiae (Gr B Not Detected (Not Detect); Streptococcus pneumonia Not Detected (Not Detect); Streptococcus pyogenes (Gr A) Not Detected (Not Detect); Streptococcus species Not Detected (Not Detect)
--- NOTE | 2020-06-29 09:02 | CM.DANOTE ---
Discharge Planning/Care Management DCP: assessment: case received, EMR reviewed and met with pt. Introduced self and role. Pt is a 75 year old male who admitted last night to care of hospitalist team. PCP: Pierre Rodriguez Payer: Medicare Pt confirms that he lives with his girlfriend Elizabeth Pacheco: [phone] and will have her supportive assist when he does get to go home. He noted that Dr. Collier saw him early this morning and told him, to my disappointment, that he would have to be treated in the hospital for at least a couple more days. Pt has had recent urology care at [facility] including transrectal prostate biopsy procedure 3 days prior to admission and a TURP on 06/12. Hospitalist team consulted with physician and pt is now on the recommended IV Zosyn and IV vancomycin. P: at this point, anticipate pt will d/c to home setting when stable for same but POC is newly in process and DCP team will follow prn for any needs that may arise. Elizabeth is patient's designated support system. Pt has his cell and other electronic devices at bedside. CM Discharge Assessment Start: 06/29/20 09:00 Freq: Status: Active Protocol: Document 06/29/20 09:01 IT (Rec: 06/29/20 09:02 IT [id number]) Discharge Planning Assessment Advance Directives? No History Provided By Patient,Medical Record Prior Living Arrangements House Household Members significant other Independent with ADL's Yes Is patient alert and oriented? Yes
[2020-06-29] MEDS: ENOXAPARIN 40 MG/0.4 ML SYRINGE SUBCUT (09:05)
--- NOTE | 2020-06-29 09:17 | P.PN_ITS ---
Subjective Subjective Date Patient Seen: 06/29/20 Interval history: Patient is a 75-year-old male admitted with sepsis syndrome status post transrectal prostate biopsy 3 days NAIL PROFESSIONAL. Patient reports weakness, nausea and poor appetite. His vomiting and diarrhea present prior to admission seem to have resolved. Blood pressures have improved since admission. Exam Vital Signs (past 8 hours): - 06/29/20 03:00 06/29/20 07:23 Temperature 98.3 F 97.0 F L Pulse Rate 97 H 95 H Respiratory Rate 18 16 Blood Pressure 123/57 L 122/61 Pulse Oximetry 98 96 Oxygen Delivery Method Room Air Oxygen Flow Rate 0 Narrative Exam Narrative: General: Alert and cooperative male in no acute distress Lungs: Clear to auscultation Heart: Regular rhythm Abdomen: Soft Extremities: Nonedematous Neurological: Affect normal, sensorium intact Objective Labs Result Diagrams: 06/29/20 04:55 06/29/20 04:55 Labs: Laboratory Results - last 24 hr 06/28/20 06/28/20 06/28/20 17:53 17:53 17:53 WBC 17.3 H RBC 3.58 L Hgb 12.0 L Hct 34.7 L MCV 96.9 MCH 33.6 MCHC 34.7 RDW 12.5 Plt Count 143 L Neut % (Auto) 95.3 H Lymph % (Auto) 1.4 L [place] % (Auto) 2.9 L Eos % (Auto) 0.1 L Baso % (Auto) 0.3 Neut # (Auto) 75284 H Lymph # (Auto) 200 L [place] # (Auto) 500 Eos # (Auto) 0 Baso # (Auto) 0 Sodium 132 L Potassium 3.8 Chloride 101 Carbon Dioxide 23 BUN 31 H Creatinine 1.31 H Estimated GFR 53.3 L BUN/Creatinine Ratio 23.7 H Glucose 128 H Lactate Calcium 8.8 Magnesium Total Bilirubin 1.1 AST 47 ALT 38 Alkaline Phosphatase 93 Total Protein 6.6 Albumin 3.7 Globulin 2.9 Albumin/Globulin Ratio 1.3 Lipase 61 Procalcitonin 22.43 H Urine Color Urine Appearance Urine pH Ur Specific [place] Urine Protein Urine Glucose (UA) Urine Ketones Urine Occult Blood Urine Nitrate Urine Bilirubin Urine Urobilinogen Ur Leukocyte Esterase Urine RBC Urine WBC Ur Squamous Epith Cells Urine Bacteria Hyaline Casts Ur Culture Indicated? Micro UA Comment A. baumannii (PCR) Shaniqua albicans (PCR) C. glabrata (PCR) C. krusei (PCR) C. parapsilosis (PCR) C. tropicalis (PCR) COVID-19 PCR Enterobacteriac sp PCR E. cloacae complex PCR Enterococcus sp PCR E. coli (PCR) H. influenzae (PCR) Klebsiella oxytoca PCR Klebsiella pneumoniae List. monocytogenes PCR N. meningitidis (PCR) Proteus species (PCR) Serratia marcescens PCR Staphylococcus sp PCR Staph aureus (PCR) mecA-Methicil Res Gene Streptococcus sp PCR Group A Strep (PCR) Strep agalactiae (PCR) Strep pneumoniae (PCR) P. aeruginosa (PCR) Mayi/B-Vanco Res Genes KPC-Carbap Res Gene PCR 06/28/20 06/28/20 06/28/20 17:53 18:36 19:27 WBC RBC Hgb Hct MCV MCH MCHC RDW Plt Count Neut % (Auto) Lymph % (Auto) [place]cl[place] % (Auto) Eos % (Auto) Baso % (Auto) Neut # (Auto) Lymph # (Auto) [place] # (Auto) Eos # (Auto) Baso # (Auto) Sodium Potassium Chloride Carbon Dioxide BUN Creatinine Estimated GFR BUN/Creatinine Ratio Glucose Lactate 2.5 H Calcium Magnesium Total Bilirubin AST ALT Alkaline Phosphatase Total Protein Albumin Globulin Albumin/Globulin Ratio Lipase Procalcitonin Urine Color Yellow Urine Appearance Clear Urine pH 5.5 Ur Specific [place] <=1.005 Urine Protein Trace H Urine Glucose (UA) Negative Urine Ketones Negative Urine Occult Blood 3+ H Urine Nitrate Negative Urine Bilirubin Negative Urine Urobilinogen 0.2 Ur Leukocyte Esterase 1+ H Urine RBC 10-30/hpf H Urine WBC 10-30/hpf H Ur Squamous Epith Cells 1-5 /hpf Urine Bacteria Few (2-10) H Hyaline Casts 1-5/lpf Ur Culture Indicated? Cult not indicated Micro UA Comment Cx already ordered A. baumannii (PCR) Not detected Shaniqua albicans (PCR) Not detected C. glabrata (PCR) Not detected C. krusei (PCR) Not detected C. parapsilosis (PCR) Not detected C. tropicalis (PCR) Not detected COVID-19 PCR Enterobacteriac sp PCR Detected H E. cloacae complex PCR Not detected Enterococcus sp PCR Not detected E. coli (PCR) Detected H H. influenzae (PCR) Not detected Klebsiella oxytoca PCR Not detected Klebsiella pneumoniae Not detected List. monocytogenes PCR Not detected N. meningitidis (PCR) Not detected Proteus species (PCR) Not detected Serratia marcescens PCR Not detected Staphylococcus sp PCR Not detected Staph aureus (PCR) Not detected mecA-Methicil Res Gene Not Reportable Streptococcus sp PCR Not detected Group A Strep (PCR) Not detected Strep agalactiae (PCR) Not detected Strep pneumoniae (PCR) Not detected P. aeruginosa (PCR) Not detected Mayi/B-Vanco Res Genes Not Reportable KPC-Carbap Res Gene PCR Not detected 06/28/20 06/28/20 06/28/20 20:36 20:38 21:15 WBC RBC Hgb Hct MCV MCH MCHC RDW Plt Count Neut % (Auto) Lymph % (Auto) [place]cl[place] % (Auto) Eos % (Auto) Baso % (Auto) Neut # (Auto) Lymph # (Auto) [place] # (Auto) Eos # (Auto) Baso # (Auto) Sodium Potassium Chloride Carbon Dioxide BUN Creatinine Estimated GFR BUN/Creatinine Ratio Glucose Lactate 1.3 Calcium Magnesium 1.5 L Total Bilirubin AST ALT Alkaline Phosphatase Total Protein Albumin Globulin Albumin/Globulin Ratio Lipase Procalcitonin Urine Color Urine Appearance Urine pH Ur Specific [place] Urine Protein Urine Glucose (UA) Urine Ketones Urine Occult Blood Urine Nitrate Urine Bilirubin Urine Urobilinogen Ur Leukocyte Esterase Urine RBC Urine WBC Ur Squamous Epith Cells Urine Bacteria Hyaline Casts Ur Culture Indicated? Micro UA Comment A. baumannii (PCR) Shaniqua albicans (PCR) C. glabrata (PCR) C. krusei (PCR) C. parapsilosis (PCR) C. tropicalis (PCR) COVID-19 PCR Negative Enterobacteriac sp PCR E. cloacae complex PCR Enterococcus sp PCR E. coli (PCR) H. influenzae (PCR) Klebsiella oxytoca PCR Klebsiella pneumoniae List. monocytogenes PCR N. meningitidis (PCR) Proteus species (PCR) Serratia marcescens PCR Staphylococcus sp PCR Staph aureus (PCR) mecA-Methicil Res Gene Streptococcus sp PCR Group A Strep (PCR) Strep agalactiae (PCR) Strep pneumoniae (PCR) P. aeruginosa (PCR) Mayi/B-Vanco Res Genes KPC-Carbap Res Gene PCR 06/29/20 06/29/20 06/29/20 04:55 04:55 04:55 WBC 17.6 H RBC 3.55 L Hgb 12.0 L Hct 35.3 L MCV 99.3 MCH 33.6 MCHC 33.9 RDW 12.7 Plt Count 126 L Neut % (Auto) 91.1 H Lymph % (Auto) 3.6 L [place] % (Auto) 4.6 Eos % (Auto) 0.5 L Baso % (Auto) 0.2 Neut # (Auto) 52268 H Lymph # (Auto) 600 L [place] # (Auto) 800 Eos # (Auto) 100 Baso # (Auto) 0 Sodium 135 L Potassium 4.5 Chloride 104 Carbon Dioxide 29 BUN 25 H Creatinine 1.05 Estimated GFR > 60.0 BUN/Creatinine Ratio 23.8 H Glucose 119 H Lactate Calcium 8.7 Magnesium Total Bilirubin AST ALT Alkaline Phosphatase Total Protein Albumin Globulin Albumin/Globulin Ratio Lipase Procalcitonin 18.28 H Urine Color Urine Appearance Urine pH Ur Specific [place] Urine Protein Urine Glucose (UA) Urine Ketones Urine Occult Blood Urine Nitrate Urine Bilirubin Urine Urobilinogen Ur Leukocyte Esterase Urine RBC Urine WBC Ur Squamous Epith Cells Urine Bacteria Hyaline Casts Ur Culture Indicated? Micro UA Comment A. baumannii (PCR) Shaniqua albicans (PCR) C. glabrata (PCR) C. krusei (PCR) C. parapsilosis (PCR) C. tropicalis (PCR) COVID-19 PCR Enterobacteriac sp PCR E. cloacae complex PCR Enterococcus sp PCR E. coli (PCR) H. influenzae (PCR) Klebsiella oxytoca PCR Klebsiella pneumoniae List. monocytogenes PCR N. meningitidis (PCR) Proteus species (PCR) Serratia marcescens PCR Staphylococcus sp PCR Staph aureus (PCR) mecA-Methicil Res Gene Streptococcus sp PCR Group A Strep (PCR) Strep agalactiae (PCR) Strep pneumoniae (PCR) P. aeruginosa (PCR) Mayi/B-Vanco Res Genes KPC-Carbap Res Gene PCR 06/29/20 04:55 WBC RBC Hgb Hct MCV MCH MCHC RDW Plt Count Neut % (Auto) Lymph % (Auto) [place] % (Auto) Eos % (Auto) Baso % (Auto) Neut # (Auto) Lymph # (Auto) [place] # (Auto) Eos # (Auto) Baso # (Auto) Sodium Potassium Chloride Carbon Dioxide BUN Creatinine Estimated GFR BUN/Creatinine Ratio Glucose Lactate Calcium Magnesium 2.8 H Total Bilirubin AST ALT Alkaline Phosphatase Total Protein Albumin Globulin Albumin/Globulin Ratio Lipase Procalcitonin Urine Color Urine Appearance Urine pH Ur Specific [place] Urine Protein Urine Glucose (UA) Urine Ketones Urine Occult Blood Urine Nitrate Urine Bilirubin Urine Urobilinogen Ur Leukocyte Esterase Urine RBC Urine WBC Ur Squamous Epith Cells Urine Bacteria Hyaline Casts Ur Culture Indicated? Micro UA Comment A. baumannii (PCR) Shaniqua albicans (PCR) C. glabrata (PCR) C. krusei (PCR) C. parapsilosis (PCR) C. tropicalis (PCR) COVID-19 PCR Enterobacteriac sp PCR E. cloacae complex PCR Enterococcus sp PCR E. coli (PCR) H. influenzae (PCR) Klebsiella oxytoca PCR Klebsiella pneumoniae List. monocytogenes PCR N. meningitidis (PCR) Proteus species (PCR) Serratia marcescens PCR Staphylococcus sp PCR Staph aureus (PCR) mecA-Methicil Res Gene Streptococcus sp PCR Group A Strep (PCR) Strep agalactiae (PCR) Strep pneumoniae (PCR) P. aeruginosa (PCR) Mayi/B-Vanco Res Genes KPC-Carbap Res Gene PCR PFSH Medical History Asthma BPH (benign prostatic hyperplasia) Chronic seasonal allergic rhinitis GERD (gastroesophageal reflux disease) Hypertension Lung nodule < 6cm on CT Obstructive sleep apnea of adult Surgical History (Updated 06/29/20 @ 00:14 by DAYO Joiner) History of prostate biopsy History of prostate surgery History of repair of rotator cuff History of transurethral resection of prostate Family History (Updated 06/29/20 @ 00:16 by DAYO Joiner) Mother Cancer Brother Cancer Father CAD (coronary artery disease) Social History household members: significant other Smoking Status: Never smoker alcohol intake: former Assessment & Plan Assessment & Plan narrative: Patient is a 75-year-old male admitted with sepsis syndrome status post transrectal prostate biopsy 3 days NAIL PROFESSIONAL. 1. Severe sepsis with organ dysfunction, hypotension, acute, present on arrival, active. -patient underwent transrectal prostate biopsy 3 days ago at [facility] during which time he received Rocephin prophylaxis. -the patient developed rigors and chills, cardiovascular dysfunction with hypotension, tachycardia and orthostatic hypotension, with white count elevated at 17.3, procalcitonin 22.43 and lactic acid 2.5 improving to 1.3 post fluid resuscitation. -sofa score is 3 on admission -BP has normalized -continue Zosyn for Gram-negative and anaerobic coverage and vancomycin for Enterococcus coverage -E coli and Enterobacter teary a detected on serology -follow up on culture results, negative to date -discontinued IV fluids a.m. 06/29 2. Acute renal injury, present on admission, resolved -initial creatinine 1.31, improved to 1.05 with IV hydration 3. Essential hypertension, chronic, stable -patient takes losartan 50 mg twice daily which is held due to hypotension. -continue atorvastatin 10 mg HS for hyperlipidemia 4. Obstructive sleep apnea, chronic, stable. -patient reports that he does not use his CPAP regularly due to chronic nasal congestion. -reports presently using Flonase nasal spray daily. 5. Bilateral shoulder pain, rotator cuff disorder, chronic, stable. -patient previously used Celebrex and was advised not to perioperatively. The patient was using CBD oil with good efficacy. -ordered Tylenol for mild pain and oxycodone 5 mg every the 6 hours as needed for moderate to severe pain VTE prophylaxis: Enoxaparin Diet: Heart healthy Code status: Full code, the patient designates Elizabeth Lintonadden to be his surrogate decision maker. Quality VTE Deep Vein Thrombosis/Pulmonary Embolism Present on Admission: No
[2020-06-29] MEDS: VANCOMYCIN PER PHARMACY 1 REQUEST MISC (10:42)
[2020-06-29] MEDS: ATORVASTATIN 20 MG TABLET 10 MG PO (21:04)
[2020-06-29] MEDS: MELATONIN 3 MG TABLET 9 MG PO (23:54)
[2020-06-30] VITALS (10 sets, daily range): BP systolic 117–140; BP diastolic 69–86; PULSE 75–86; RESP 16–20; TEMP 36.4–37.3; O2SAT 96–99
[2020-06-30 05:27] LABS: Add Manual Diff / Slide Review NO; Basophils Absolute Auto 0 /uL (0-100); Basophils Percent Auto 0.5 % (0-2); Eosinophils Absolute Auto 300 /uL (0-450); Eosinophils Percent Auto 2.7 % (2-4); Hematocrit 34.4 % (41-53); Hemoglobin 11.8 g/dL (13.5-17.5); Lymphocytes Absolute Auto 1100 /uL (1100-4500); Lymphocytes Percent Auto 11.7 % (25-40); Mean Corpuscular HGB Conc 34.3 % (30-36); Mean Corpuscular Hemoglobin 34.1 PG (26-34); Mean Corpuscular Volume 99.4 fL (80-100); Monocytes Absolute Auto 900 /uL (0-900); Monocytes Percent Auto 9.6 % (3-14); Neutrophils Absolute Auto 7100 /uL (1500-7000); Neutrophils Percent Auto 75.5 % (50-75); Platelet Count 120 X10^3/uL (150-400); Red Blood Cell Count 3.46 X10^6/uL (4.5-5.9); Red Cell Distribution Width 12.7 % (11.6-14.8); White Blood Cell Count 9.4 X10^3/uL (4.5-11.0)
[2020-06-30 05:28] LABS: BUN Creatinine Ratio 16.3 (6-22); Blood Urea Nitrogen 16 mg/dL (9-20); Calcium 8.7 mg/dL (8.4-10.2); Carbon Dioxide 27 mmol/L (22-32); Chloride 108 mmol/L (98-107); Estimated Glomerular Filt Rate > 60.0 mL/min (>60); Glucose 121 mg/dL (80-110); HEMOLYSIS < 15 (0-50); Potassium 4.5 mmol/L (3.4-5.1); Sodium 138 mmol/L (137-145)
[2020-06-30 05:44] LABS: Procalcitonin 9.23 ng/mL (<0.5)
[2020-06-30] MEDS: PIPERACILLIN-TAZO 3.375 GM/50 ML FROZ.PIGGY IV (06:19)
[2020-06-30] MEDS: ENOXAPARIN 40 MG/0.4 ML SYRINGE SUBCUT (08:50)
[2020-06-30] MEDS: MEROPENEM 1,000 MG in SODIUM CHLORIDE 0.9% 100 ML 200 ML IV (08:50)
--- NOTE | 2020-06-30 10:58 | PM.PN.1 ---
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 Patient is blood cultures are growing E coli and urine culture positive for ESBL E coli. Last temperature spike was yesterday afternoon and subsequently he has defervesced. WBC and procalcitonin trending down and patient feels general improvement in his condition. Exam Vital Signs (past 8 hours): - 06/30/20 05:00 06/30/20 05:50 06/30/20 07:26 Temperature 98.2 F 97.7 F Pulse Rate 82 86 Respiratory Rate 18 16 Blood Pressure 139/86 122/76 Pulse Oximetry 97 97 97 Oxygen Delivery Method Room Air Oxygen Flow Rate 0 Narrative Exam Narrative: General: Alert and cooperative male in no acute distress Objective Labs Result Diagrams: 06/30/20 05:00 06/30/20 05:00 Labs: Laboratory Results - last 24 hr 06/30/20 06/30/20 06/30/20 05:00 05:00 05:00 WBC 9.4 RBC 3.46 L Hgb 11.8 L Hct 34.4 L MCV 99.4 MCH 34.1 H MCHC 34.3 RDW 12.7 Plt Count 120 L Neut % (Auto) 75.5 H Lymph % (Auto) 11.7 L [place] % (Auto) 9.6 Eos % (Auto) 2.7 Baso % (Auto) 0.5 Neut # (Auto) 7100 H Lymph # (Auto) 1100 [place] # (Auto) 900 Eos # (Auto) 300 Baso # (Auto) 0 Sodium 138 Potassium 4.5 Chloride 108 H Carbon Dioxide 27 BUN 16 Creatinine 0.98 Estimated GFR > 60.0 BUN/Creatinine Ratio 16.3 Glucose 121 H Calcium 8.7 Procalcitonin 9.23 H PFSH Medical History Asthma BPH (benign prostatic hyperplasia) Chronic seasonal allergic rhinitis GERD (gastroesophageal reflux disease) Hypertension Lung nodule < 6cm on CT Obstructive sleep apnea of adult Surgical History (Updated 06/29/20 @ 00:14 by DAYO Joiner) History of prostate biopsy History of prostate surgery History of repair of rotator cuff History of transurethral resection of prostate Family History (Updated 06/29/20 @ 00:16 by DAYO Joiner) Mother Cancer Brother Cancer Father CAD (coronary artery disease) Social History household members: significant other Smoking Status: Never smoker alcohol intake: former Assessment & Plan Assessment & Plan narrative: Patient is a 75-year-old male admitted with sepsis syndrome status 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 1. Severe sepsis with organ dysfunction, acute, present on arrival, resolving. -patient underwent transrectal prostate biopsy 3 days ago at [facility] during which time he received Rocephin prophylaxis. -sofa score of 3 on admission -condition improving with defervesce in and decreasing WBC and procalcitonin -blood cultures positive for E coli and urine culture positive for ESBL E coli sensitive to imipenem, ertapenem and Zosyn -patient's antibiotic was switched from Zosyn to meropenem 1 g IV q.8 hours on a.m. 06/30 for improved ESBL coverage, patient has otherwise uncomplicated ESBL bacteremia -continue meropenem through July 05 to complete total 7 days IV antibiotic therapy -PICC 2. Acute renal injury, present on admission, resolved -initial creatinine 1.31, improved to 1.05 with IV hydration 3. Essential hypertension, chronic, stable -patient takes losartan 50 mg twice daily which is being held with BP remaining in normal range -continue atorvastatin 10 mg HS for hyperlipidemia 4. Obstructive sleep apnea, chronic, stable. -patient reports that he does not use his CPAP regularly due to chronic nasal congestion. -reports presently using Flonase nasal spray daily. 5. Bilateral shoulder pain, rotator cuff disorder, chronic, stable. -patient previously used Celebrex and was advised not to perioperatively. The patient was using CBD oil with good efficacy. -ordered Tylenol for mild pain and oxycodone 5 mg every the 6 hours as needed for moderate to severe pain VTE prophylaxis: Enoxaparin Diet: Heart healthy Code status: Full code, the patient designates Elizabeth Pacheco to be his surrogate decision maker. Patient with improving treatment course and likely will be ready for discharge tomorrow, Thursday, to complete IV antibiotic course as outpatient. Discharge planners are working on disposition to senior living versus home. Quality VTE Deep Vein Thrombosis/Pulmonary Embolism Present on Admission: No
--- NOTE | 2020-06-30 11:56 | PC.NURSE ---
Assess- Patient is doing well this morning, he denies pain and is voiding well. O pain upon urination, and he is independent in his room. IV infused, lab called and patient does have ESBL in his urine, is aware and changed his antibiotic. Patients will be here later to help him shower, he has also been placed on contact precautions for the ESBL.
--- NOTE | 2020-06-30 12:23 | CM.DPC ---
Addendum entered by CHIQUITA Rasmussen 06/30/20 15:45: ADD: Met bedside with pt and long time girlfriend and updated on options for IV-Abx and they are agreeable with either remaining in the hospital or going to Swing Bed at [facility] which currently seems like the only two options. They are aware that Swing bed availability and acceptance cannot be confirmed until Thursday. BF Original Note: DCP IV-Abx planning Per MD, pt is stabilizing but had cultures positive for ESBL and will require IV-Abx Mirapenem 1 g Q8 until 07/05/20. PICC order to be placed either today or tomorrow when available. JONO met bedside with pt and explained role and discussed above and pt aware of IV-Abx needs and preference is to stay at the hospital. SW discussed hospital level of care and the options for IV-Abx outside of the hospital. Pt's straight Medicare does not cover home infusion. Pt's Q8 may be too often for outpt Infusion Clinic to manage and pt's Medicare would cover SNF for antibiotic needs. JONO provided the SNF Choice List and pt will review but he states his preference would be 1) outpt infusion and willing to go 3x a day for the remainder of days needed 2) SW discussed Swing Bed at [facility]. Pt strongly wants to avoid SNF if possible and willing for SW to call Swing/outpt infusion/and SNF to determine options. JONO called [facility] Outpt Infusion clinic and confirmed they cannot manage Q8 in the clinic setting. JONO called [facility] Swing Bed [phone] and they are willing to review but will not be able to confirm if they can accept until Thursday07/02/20 at the earliest as they are not accepting admission over the weekend. JONO faxed clinicals to review to their fax [phone] and will follow up Thursday. JONO called [facility] SNF and discussed pt's Abx needs and Mirapenem is the most affordable and it still is currently too expense to accept pt AND will not know until this evening if they can start accepting new admits Thursday or not. JONO updated MD on likely options of remaining in the hospital for the next 5 days for IV-Abx needs vs Swing Bed review this weekend. Plan: SW to follow closely tomorrow with further discussion with pt regarding above information and try to narrow down if [facility] can accept pt Thursday for IV-Abx needs. CHIQUITA Rasmussen
[2020-06-30] MEDS: MEROPENEM 1 GM in SODIUM CHLORIDE 0.9% 100 ML 200 ML IV (17:47)
[2020-06-30] MEDS: ACETAMINOPHEN 325 MG TABLET 650 MG PO (19:23)
[2020-06-30] MEDS: ATORVASTATIN 20 MG TABLET 10 MG PO (20:46)
[2020-06-30] MEDS: MELATONIN 3 MG TABLET 9 MG PO (20:46)
[2020-07-01] VITALS (11 sets, daily range): BP systolic 121–135; BP diastolic 62–77; PULSE 67–75; RESP 16–20; TEMP 36.8–37.2; O2SAT 95–99
[2020-07-01] MEDS: MEROPENEM 1 GM in SODIUM CHLORIDE 0.9% 100 ML 200 ML IV ×2 (01:02→09:16)
[2020-07-01] MEDS: ENOXAPARIN 40 MG/0.4 ML SYRINGE SUBCUT (09:17)
[2020-07-01] MEDS: SODIUM CHLORIDE 0.9% FLUSH 10 ML IV ×2 (10:18→17:48)
--- NOTE | 2020-07-01 10:56 | P.PN_ITS ---
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 Patient had PICC line placed 06/30. He is on meropenem for ESBL E coli bacteremia. States he does not feel quite as good today as he did yesterday. He has no specific complaints but general malaise. Last temperature spike was 2 days ago. WBC and procalcitonin have been trending down. Exam Vital Signs (past 8 hours): - 07/01/20 04:45 07/01/20 05:00 07/01/20 07:37 Temperature 99.0 F 99.0 F Pulse Rate 70 70 Respiratory Rate 16 16 Blood Pressure 121/62 125/73 Pulse Oximetry 97 97 98 07/01/20 08:22 Temperature Pulse Rate Respiratory Rate Blood Pressure Pulse Oximetry 97 Oxygen Delivery Method Room Air Oxygen Flow Rate 0 Narrative Exam Narrative: General: Alert patient is sitting on side of bed and eating breakfast, NAD Lungs: Clear to auscultation Heart: Regular rhythm Extremities: No edema Objective Labs Result Diagrams: 06/30/20 05:00 06/30/20 05:00 [facility] Medical History Asthma BPH (benign prostatic hyperplasia) Chronic seasonal allergic rhinitis GERD (gastroesophageal reflux disease) Hypertension Lung nodule < 6cm on CT Obstructive sleep apnea of adult Surgical History (Updated 06/29/20 @ 00:14 by DAYO Joiner) History of prostate biopsy History of prostate surgery History of repair of rotator cuff History of transurethral resection of prostate Family History (Updated 06/29/20 @ 00:16 by DAYO Joiner) Mother Cancer Brother Cancer Father CAD (coronary artery disease) Social History household members: significant other Smoking Status: Never smoker alcohol intake: former Assessment & Plan Assessment & Plan narrative: Patient is a 75-year-old male admitted with sepsis syndrome status 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 1. Severe sepsis with organ dysfunction, ESBL E coli bacteremia, urinary source, present on admission, active -patient underwent transrectal prostate biopsy 3 days ago at [facility] during which time he received Rocephin prophylaxis. -sofa score of 3 on admission -responding to antibiotic management with defervesce in and decreasing WBC and procalcitonin -blood in urine cultures positive for ESBL E coli -patient's antibiotic was switched from Zosyn to meropenem 1 g IV q.8 hours on a.m. 06/30 for improved ESBL coverage, patient has otherwise uncomplicated ESBL bacteremia, he does not have retained hardware -continue meropenem through July 05 to complete total 7 days IV antibiotic therapy, ertapenem is an option for once daily therapy though considered not as optimal as meropenem for ESBL organism therapy -PICC placed 06/30 2. Acute renal injury, present on admission, resolved -initial creatinine 1.31, improved to 1.05 with IV hydration 3. Essential hypertension, chronic, stable -patient takes losartan 50 mg twice daily which is still being held with BP remaining in normal range -continue atorvastatin 10 mg HS for hyperlipidemia 4. Obstructive sleep apnea, chronic, stable. -patient reports that he does not use his CPAP regularly due to chronic nasal congestion. -reports presently using Flonase nasal spray daily. 5. Bilateral shoulder pain, rotator cuff disorder, chronic, stable. -patient previously used Celebrex and was advised not to perioperatively. The patient was using CBD oil with good efficacy. -ordered Tylenol for mild pain and oxycodone 5 mg every the 6 hours as needed for moderate to severe pain VTE prophylaxis: Enoxaparin Diet: Heart healthy Code status: Full code, the patient designates Elizabeth Pacheco to be his surrogate decision maker. Patient will need to continue on IV meropenem through 07/05. There is plan for tentative discharge to [facility] tomorrow, Thursday, pending bed availability. Quality VTE Deep Vein Thrombosis/Pulmonary Embolism Present on Admission: No
[2020-07-01] MEDS: ACETAMINOPHEN 325 MG TABLET 650 MG PO (13:00)
[2020-07-01] MEDS: polyethylene glycoL 3350 17 GM POWD.PACK PO (14:48)
[2020-07-01] MEDS: MEROPENEM 1 GM in SODIUM CHLORIDE 0.9% 100 ML IV (17:43)
[2020-07-01] MEDS: ATORVASTATIN 20 MG TABLET 10 MG PO (21:15)
[2020-07-01] MEDS: MELATONIN 3 MG TABLET 9 MG PO (21:16)
[2020-07-01] MEDS: DOCUSATE 100 MG CAPSULE 200 MG PO (21:19)
--- NOTE | 2020-07-01 21:23 | PC.NURSE ---
Pt is very animated and alert; independent in room; tolerating Abx, Hep lock, PICC drsg c/d/i
[2020-07-02] VITALS (7 sets, daily range): BP systolic 131–143; BP diastolic 57–77; PULSE 71–80; RESP 16; TEMP 36.7–37.3; O2SAT 95–96
[2020-07-02] MEDS: MEROPENEM 1 GM in SODIUM CHLORIDE 0.9% 100 ML 200 ML IV ×2 (00:10→10:19)
[2020-07-02 05:40] LABS: Add Manual Diff / Slide Review NO; Basophils Absolute Auto 100 /uL (0-100); Basophils Percent Auto 1.2 % (0-2); Eosinophils Absolute Auto 400 /uL (0-450); Eosinophils Percent Auto 5.3 % (2-4); Hematocrit 35.1 % (41-53); Hemoglobin 12.3 g/dL (13.5-17.5); Lymphocytes Absolute Auto 1500 /uL (1100-4500); Mean Corpuscular HGB Conc 34.9 % (30-36); Mean Corpuscular Hemoglobin 33.5 PG (26-34); Mean Corpuscular Volume 96.2 fL (80-100); Monocytes Absolute Auto 1100 /uL (0-900); Monocytes Percent Auto 14.7 % (3-14); Neutrophils Absolute Auto 4600 /uL (1500-7000); Neutrophils Percent Auto 59.8 % (50-75); Platelet Count 152 X10^3/uL (150-400); Red Blood Cell Count 3.65 X10^6/uL (4.5-5.9); Red Cell Distribution Width 12.4 % (11.6-14.8); White Blood Cell Count 7.7 X10^3/uL (4.5-11.0)
[2020-07-02 05:49] LABS: BUN Creatinine Ratio 19.8 (6-22); Blood Urea Nitrogen 17 mg/dL (9-20); Calcium 8.9 mg/dL (8.4-10.2); Carbon Dioxide 27 mmol/L (22-32); Chloride 108 mmol/L (98-107); Estimated Glomerular Filt Rate > 60.0 mL/min (>60); Glucose 99 mg/dL (80-110); HEMOLYSIS < 15 (0-50); Potassium 3.8 mmol/L (3.4-5.1); Sodium 137 mmol/L (137-145)
[2020-07-02 06:06] LABS: Procalcitonin 3.11 ng/mL (<0.5)
--- NOTE | 2020-07-02 10:08 | CM.DPNOTE ---
Faxed FS and clinicals to [facility] on 07/02/20 and received confirmation. Carmencita Selby CM Asst.
[2020-07-02] MEDS: ENOXAPARIN 40 MG/0.4 ML SYRINGE SUBCUT (10:23)
--- NOTE | 2020-07-02 10:24 | P.DS_ITS ---
History of Present Illness History of Present Illness Date Patient Seen: 07/02/20 Time Patient Seen: 10:24 Chief complaint: possible reaction to needle biopsy Narrative: As per DAYO Joiner: Mr. Jeanna Clemons is a 75 year old male with a past medical history significant for hypertension, lung nodule, obstructive sleep with CPAP, GERD in chronic bilateral shoulder pain who presents to the ER with nausea vomiting and diarrhea. The patient underwent a transrectal prostate biopsy 3 days ago at [facility]. Following the procedure the patient describes having mild difficulty with urinating peroneal tenderness and developed chills and rigors yesterday improved with associated with nausea and vomiting. He also had moderate diarrhea that has since improved today. He had recurrent rigors not as severe today as well as lightheadedness and dizziness on standing prompting presentation to the ER for evaluation. The patient provides further information that he underwent but he describes as TURP 06/12/2020 and prior to that it had prostate laser surgery without improvement. Patient denies fevers only endorses chills and rigors. He has chronic nasal congestion but denies sinus pain or sore throat. He has had no chest pain or palpitations and denies shortness of breath cough or wheezing. Reports no abdominal pain and denies cramping with diarrhea which is improved from watery to soft. He continues to have frequent difficult urination and has a history of nocturia 2-5 times per night. He has bilateral shoulder pain related to rotator cuff disorder which he has been using CBD oil with good effect. Upon arrival the ER the patient's temperature 99.6?, heart rate 110, blood pressure 97/49, respiratory rate of 20 saturating 98% on room air. A CT of the abdomen pelvis is obtained which finds generalized inflammation around the urinary bladder and prostate with fat stranding around the prostate suspicious for cystitis or prostatitis, no abscess or free fluid, noted sigmoid diverticulosis. On laboratory analysis the patient has white count of 17.3 with 95.3 neutrophils, hemoglobin of 12.0, hematocrit of 34.7 and platelets of 143. His sodium 32, potassium of 3.8, BUN of 31 and creatinine 1.31. His nonfasting glucose is 128. His EGFR is 53.3. Total bilirubin is 1.1 with AST of 47, ALT of 38 and alkaline phosphatase of 93. Lactic acid is 2.5 improved to 1.3 on re- evaluation. Procalcitonin is 22.43. Urinalysis finds a specific gravity of 1.005, positive for blood leukocyte esterase WBCs and bacteria. In the ER the patient received Rocephin 1 g IV. Urology was contacted at [facility] where the patient had the procedure done in consultation with Dr. lorenzo the patient was started on Zosyn 3.375 g and vancomycin 1 g IV. The patient is admitted to the hospitalist service for cystitis and prostatitis. Discharge Providers Provider Date of admission: 06/28/20 20:39 Discharge Date: 07/02/20 Primary care physician: Pierre Rodrigeuz MD Consults: 06/28/20 21:33 Consult to Discharge Planning Routine Comment: Consult to Respiratory Therapy Evaluate & Treat Comment: AD with CPAP Physician Instructions: Evaluate and treat 06/30/20 10:58 Consult After Hours PICC Line RN Routine Comment: Discharge provider: Vimal Salazar DO Summary Hospital Course Hospital Course: Patient is a 75-year-old male admitted with sepsis syndrome status post transrectal prostate biopsy 3 days [employer] which was secondary to ESBL E. coli bacteremia likely secondary to his biopsy. 1. Severe sepsis with organ dysfunction, ESBL E coli bacteremia, urinary source, present on admission, active -patient underwent transrectal prostate biopsy 3 days prior to admission at [facility] during which time he received Rocephin prophylaxis. -sofa score of 3 on admission -blood in urine cultures positive for ESBL E coli -patient's antibiotic was switched from Zosyn to meropenem 1 g IV q.8 hours on a.m. 06/30 for improved ESBL coverage, patient has otherwise uncomplicated ESBL bacteremia, he does not have retained hardware. -continue meropenem through July 05 to complete total 7 days IV antibiotic therapy. Patient was discharged to SNF for completion of antibiotic therapy. -PICC placed 06/30 2. Acute renal injury, present on admission, resolved -initial creatinine 1.31, improved to 1.05 with IV hydration. 3. Essential hypertension, chronic, stable -patient takes losartan 50 mg twice daily which is still being held with BP remaining in normal range -continue atorvastatin 10 mg HS for hyperlipidemia 4. Obstructive sleep apnea, chronic, stable. -patient reports that he does not use his CPAP regularly due to chronic nasal congestion. -reports presently using Flonase nasal spray daily. 5. Bilateral shoulder pain, rotator cuff disorder, chronic, stable. -patient previously used Celebrex and was advised not to perioperatively. The patient was using CBD oil with good efficacy. -ordered Tylenol for mild pain and oxycodone 5 mg every the 6 hours as needed for moderate to severe pain. Exam Vital Signs (past 8 hours): - 07/02/20 05:32 07/02/20 06:22 07/02/20 08:35 Temperature 98.7 F 98.4 F Pulse Rate 73 76 Respiratory Rate 16 16 Blood Pressure 131/62 134/57 L Pulse Oximetry 95 95 95 Oxygen Delivery Method Room Air Oxygen Flow Rate 0 Narrative Exam Narrative: GENERAL APPEARANCE: well developed, obese male with BMI of 32.8 lying supine in bed in no acute distress. HEENT: Normocephalic, PERRLA, conjunctiva clear, EOMs intact without nystagmus, no sinus tenderness to percussion, nasal congestion with clear rhinorrhea, mucous membranes are dry and pink. NECK/THYROID: neck supple, no JVD, no carotid bruit, no thyromegaly, trachea midline. LYMPH NODES: no cervical or supraclavicular lymphadenopathy. SKIN: [place], warm and dry, no visible lesions, rashes, ulcerations or petechiae. HEART: regular rate and rhythm, S1-S2, no murmur, no rubs or gallops, brisk capillary refill, no edema LUNGS: Diminished but clear to auscultation bilaterally, no coarseness crackles or wheezing, no cough present CHEST: Symmetrical movement, no accessory muscle use, good tidal volume. ABDOMEN: Soft, protuberant, dull to percussion,, no epigastric or abdominal tenderness, no organomegaly, no flank or suprapubic tenderness, no perineal pain, active bowel tones. EXTREMITIES: moves all extremities, strength is 5/5 and symmetrical, no deformities or joint effusions, ambulatory with stable gait. NEUROLOGIC: AAO x4, no focal neurologic deficits, cranial nerves II-XII grossly intact, sensation intact to light touch, hearing grossly normal to speech. PSYCH: Alert, cooperative and appropriate. Objective Labs Result Diagrams: 07/02/20 05:20 07/02/20 05:20 Labs: Laboratory Results - last 24 hr 12/28/20 12/28/20 12/28/20 05:20 05:20 05:20 WBC 7.7 RBC 3.65 L Hgb 12.3 L Hct 35.1 L MCV 96.2 D MCH 33.5 MCHC 34.9 RDW 12.4 Plt Count 152 Neut % (Auto) 59.8 Lymph % (Auto) 19.0 L Keith % (Auto) 14.7 H Eos % (Auto) 5.3 H Baso % (Auto) 1.2 Neut # (Auto) 4600 Lymph # (Auto) 1500 Keith # (Auto) 1100 H Eos # (Auto) 400 Baso # (Auto) 100 Sodium 137 Potassium 3.8 Chloride 108 H Carbon Dioxide 27 BUN 17 Creatinine 0.86 Estimated GFR > 60.0 BUN/Creatinine Ratio 19.8 Glucose 99 Calcium 8.9 Procalcitonin 3.11 H PFSH Medical History Asthma BPH (benign prostatic hyperplasia) Chronic seasonal allergic rhinitis GERD (gastroesophageal reflux disease) Hypertension Lung nodule < 6cm on CT Obstructive sleep apnea of adult Surgical History (Updated 06/29/20 @ 00:14 by DAYO Joiner) History of prostate biopsy History of prostate surgery History of repair of rotator cuff History of transurethral resection of prostate Family History (Updated 06/29/20 @ 00:16 by DAYO Joiner) Mother Cancer Brother Cancer Father CAD (coronary artery disease) Social History household members: significant other Smoking Status: Never smoker alcohol intake: former Discharge Plan Discharge Plan Patient Disposition: SNF Transfer to: [facility], [facility] Provider Discharge Comment: Patient was admitted to the hospital, found to have ESBL UTI. Requires 7 days of antibiotic therapy with carbapenem, last day 07/05/20. Discharge orders & Medications Prescriptions: New acetaminophen 325 mg Tablet 650 mg PO Q4HR PRN (Reason: Fever/Mild Pain (1-3)) 30 Days Qty: 60 RF: 0 melatonin 3 mg Tablet 9 mg PO BEDTIME 7 Days Qty: 21 RF: 0 docusate sodium [DOK] 100 mg Capsule 200 mg PO BEDTIME 30 Days Qty: 60 RF: 0 Continued losartan 50 mg tablet 50 mg PO BID RF: 0 atorvastatin 10 mg tablet 10 mg PO DAILY RF: 0 Follow up/Referrals: Pierre Rodriguez MD [Primary Care Provider] - Skin/Wound/Dressing Care Dressing: MICHELA mid line drsg changed 12:00, 07/02/20 Special Rehabilitation Services Reason for rehabilitation: Other Discharge Data Primary Care Provider: Pierre Rodriguez Quality VTE Deep Vein Thrombosis/Pulmonary Embolism Present on Admission: No
[2020-07-02 11:01] LABS: COVID19 -Nasal RAPID Negative (Negative)
--- NOTE | 2020-07-02 11:20 | CM.DPNOTE ---
Faxed Covid negative result to [facility] on 07/02/20. Carmencita Selby CM Asst.
--- NOTE | 2020-07-02 15:23 | CM.DPNOTE ---
DCP/continued: Reviewed chart. Received notification this AM from [facility] re: swing bed. Per [facility] they are unable to accept for IV abx for remainder of year. Therefore, [employer] placed call to [facility], spoke with Christy she is requesting information be faxed for review. Met with patient this AM and he reports that he would prefer not to go to SNF to complete IV abx course. Patient aware that he is medically stable for discharge today. Patient and significant other/Elizabeth are agreeable for [facility] to review. Spoke with Christy and she reports that they can accept for remainder of IV therapy. No authorization needed. Patient spoke with provider and significant other and has now agreed to complete IV abx at [facility]. Significant other will provide transport. P: [facility] today. CHIQUITA Joiner Discharge Planning/Care Management CM Discharge Assessment Start: 06/29/20 09:00 Freq: Status: Discharge Protocol: Document 06/29/20 09:01 ITV (Rec: 06/29/20 09:02 ITV [id number]) Discharge Planning Assessment Advance Directives? No History Provided By Patient,Medical Record Prior Living Arrangements House Household Members significant other Independent with ADL's Yes Is patient alert and oriented? Yes Document 07/02/20 15:21 KJS (Rec: 07/02/20 15:22 [id number]) Discharge Planning Assessment Assigned Retail Worker CHIQUITA Joiner Contact Information Elizabeth Tara (significant other) # [phone] Advance Directives? No History Provided By Patient,Medical Record Prior Living Arrangements House Household Members significant other Type of transporation used prior to Drives own vehicle admit Independent with ADL's Yes Is patient alert and oriented? Yes Review Status In Process Next Review Type Continued Stay Review
== END 2020-07-02 12:44 | DRG 862 ==
LOC: ED 20:39 → AC 20:40
PROVIDERS: Internal Medicine; Admitting Provider Nurse Practitioner Adult Health; Emergency Provider Emergency Medicine; PCP Family Medicine; Referring Provider Emergency Medicine; Visit Provider Nurse Practitioner Adult Health
DX: T81.44XA Sepsis following a procedure, initial encounter (principal); R65.20 Severe sepsis without septic shock; N41.0 Acute prostatitis; N17.9 Acute kidney failure, unspecified; Z16.12 Extended spectrum beta lactamase (ESBL) resistance; G47.33 Obstructive sleep apnea (adult) (pediatric); I95.9 Hypotension, unspecified; I10 Essential (primary) hypertension; N40.1 Benign prostatic hyperplasia with lower urinary tract symptoms; M25.512 Pain in left shoulder; M25.511 Pain in right shoulder; Z20.828 Contact with and (suspected) exposure to other viral communicable diseases
CPT/HCPCS: 36415; 36569; 36592; 74177; 80048; 80053; 81001; 81003; 83605; 83690; 83735; 84145; 85025; 87040; 87077; 87086; 87150; 87186; 87205; 87635; 96361; 96365; 96367; 99284; J1642; J1650; J2185; J2543; Q9967